=== PATIENT | male | born 1990 | race Caucasian/White ===

== ENCOUNTER 2021-04-08 19:26 | Emergency (ER) | payer BC ==
[~2021-04-08] VITALS: Ht 182.9 cm; Wt 108.9 kg
[~2021-04-08 19:26] MED LIST: Keflex500 MG PO
[2021-04-08] MEDS ORDERED: Cyclobenzaprine5 MG PO (21:05)
== END 2021-04-08 21:19 | disposition home or self-care (01) ==
LOC: ER 19:26
DX: M54.6 Pain in thoracic spine (principal); M54.2 Cervicalgia; M25.511 Pain in right shoulder
CPT/HCPCS: 72070; 99283-25; A9270